=== PATIENT | female | born 1990 | race African-American/Black ===

== ENCOUNTER 2017-02-01 12:00 | Emergency (ER) | payer SELFPAY ==
[~2017-02-01] VITALS: Ht 154.9 cm; Wt 69.3 kg
[2017-02-01] MEDS ORDERED: ULTRAM50 MG PO (14:07)
[2017-02-01] MEDS ORDERED: PEN-VEE K,VEET500 MG PO (14:07)
[2017-02-01] MEDS ORDERED: PERIDEX473 ML MM (14:07)
[2017-02-01] MEDS ORDERED: NAPROSYN500 MG PO (14:07)
[2017-02-01 14:32] VITALS: BP 109/77
== END 2017-02-01 14:37 | disposition home or self-care (01) ==
LOC: EME 12:00
DX: L03.211 Cellulitis of face (principal); K04.7 Periapical abscess without sinus; F17.200 Nicotine dependence, unspecified, uncomplicated
CPT/HCPCS: 99281; 99283

== ENCOUNTER 2017-07-25 21:40 | Emergency (ER) | payer SELFPAY ==
[~2017-07-25] VITALS: Ht 154.9 cm; Wt 65.5 kg
[~2017-07-25 21:40] MED LIST: NAPROSYN500 MG PO; PEN-VEE K,VEET500 MG PO; PERIDEX473 ML MM; ULTRAM50 MG PO
[2017-07-25] MEDS ORDERED: MOTRIN600 MG PO (23:45)
[2017-07-25] MEDS ORDERED: FLEXERIL5 MG PO (23:45)
[2017-07-25 23:58] VITALS: BP 138/84
== END 2017-07-25 23:59 | disposition home or self-care (01) ==
LOC: EME 21:40
DX: S30.0XXA Contusion of lower back and pelvis, initial encounter (principal); W10.9XXA Fall (on) (from) unspecified stairs and steps, initial encounter; F17.200 Nicotine dependence, unspecified, uncomplicated
CPT/HCPCS: 72100; 99281; 99284